=== PATIENT | male | born 1980 | race Caucasian/White ===

== ENCOUNTER 2018-07-18 21:05 | Observation (INO) ==
[2018-07-18] MEDS ORDERED: cefTRIAXone 1,000 MG in Water for inj. (sterile) 20 ML 10 ML IVP ONE (21:24)
[2018-07-18] MEDS ORDERED: Azithromycin 500 MG in D5% in Water 250 ML IVPB ONE (21:24)
--- NOTE | 2018-07-18 21:28 | Emergency Department Note ---
Disposition Clinical Impression: Hypoxia, SIRS due to infectious process without acute organ dysfunction Community acquired pneumonia Qualifiers: Laterality: unspecified laterality Qualified Code(s): J18.9 - Pneumonia, unspecified organism Disposition: Admitted As Inpatient Condition: Fair Time of Disposition: 01:27 SOB HPI - General Chief Complaint: ED Shortness of Breath/Dyspnea Stated Complaint: weakness Time Seen by Provider: 07/18/18 21:17 Source: patient Limitations: no limitations Nursing Notes Reviewed: Yes Vital Signs Reviewed: Yes - History of Present Illness 37-year-old male presents from home for evaluation of fever, productive cough- brown sputum, shortness of breath at rest worsened with exertion, generalized weakness. Onset 4 days ago. Reminiscent of previous pneumonia to him. Patient notes he has a predisposition for upper and lower respiratory infections for reasons unknown to him. Patient thought for a moment earlier this morning that he was getting better however he got notably worse. Also, he and his and 5 children have a single vehicle causing transportation issues. PMH: None Medications: None Habits: Has never smoked. Has never used IV drugs or illicit substances. ROS: Positive: Productive cough, dyspnea, generalized weakness, fever and sweats, decreased appetite, loose stools Negative: Nausea, vomiting, chest pains, palpitations, constipation, abdominal pain, flank pain, unusual back pain, difficulties with urination - Related Data Allergies Allergy/AdvReac Type Severity Reaction Status Date / Time aspirin AdvReac Migraine Verified 12/22/17 09:29 NSAIDS (Non-Steroidal AdvReac Headache Verified 12/22/17 09:29 Anti-Inflamma All systems ED: reviewed and negative except as stated. Review of Systems: As Per HPI Past Medical History - Past Medical History Medical history: Reports: no medical history Surgical history: Reports: orthopedic, other, other Psychiatric history: Reports: ADHD - Social History Smoking Status: Never smoker Smokeless Tobacco Status: No Alcohol use: Reports: none Drug use: Reports: none Physical Exam Vital Signs Reviewed General: Patient is alert, oriented, and appears uncomfortable. Head: atraumatic, normocephalic Eye: normal appearance, PERRL, EOMI, no scleral icterus, no conjunctival injection ENT: mucous membranes moist, normal external ear exam Neck: normal inspection, trachea midline, full ROM Chest: normal inspection, symmetric chest rise Respiratory: Good respiratory effort. Bilateral breath sounds have bibasilar crackles. No wheeze or rhonchi. Cardiovascular: Regular rate and rhythm. No clicks, rubs, gallops, or murmors. Normal heart sounds. Abdomen: Bowel sounds present normoactive. Abdomen is soft, nondistended. Mild epigastric and left upper quadrant tenderness. No guarding or rebound. No organomegaly noted. Musculoskeletal: Spontaneously moving all extremities. Skin: warm, dry, intact. Neuro: GCS 15. No focal neurologic deficits observed. Psych: Patient's affect is appropriate for situation. - General Limitations: no limitations General appearance: alert, in no apparent distress Course Course Narrative: SIRS (+) by fever and tachycardia. Additionally, patient is 91% on room air. EKG dated 07/18/2018 at 21:20 interpreted as sinus tachycardia with a rate of 104. AL 131, QRS 106, QTC 440. Normal axis. Nonspecific ST T changes. Compared to previous EKG dated 04/25/2009 showing no acute ischemic changes in comparison. Chest x-ray concerning for bibasilar pneumonia. Based on history, this will be community-acquired pneumonia. Empiric ceftriaxone and azithromycin given. Serum hematology and serum chemistry are unremarkable. Patient's heart rate improved with 2 L normal saline; no longer tachycardic. Fever improved with Tylenol and ibuprofen. Patient did, however, become tachypneic. His O2 saturation hovered around 90%. Patient was ambulated in the emergency department on room air. He remained 90%. He was tachypneic. I discussed the above the patient. He clinically appears ill despite his laboratory findings. He remains tachypneic oxygenating 90% on room air at rest. Will admit for continued respiratory monitoring and IV antibiotics. I discussed the above with the [facility], Dr. Carpio, who agrees to accept the patient for continued evaluation monitoring of his community-acquired pneumonia. Chest X-Ray 07/18/18 21:24 IMPRESSION: Cardiac leads project over the chest. Mild bibasilar opacity is seen. No evidence of pleural effusion. No pneumothorax. Cardiac and mediastinal silhouettes are within normal limits. RECOMMENDATION: Mild bibasilar atelectasis or pneumonitis. D/ / Joao Lora MD / Joao Lora MD Interpreting Provider: Joao Lora MD Vital Signs Temperature 102.2 F H 07/18/18 21:09 Pulse Rate 111 07/18/18 21:09 Respiratory Rate 18 07/18/18 21:09 Blood Pressure 112/72 07/18/18 21:09 O2 Sat by Pulse Oximetry 91 07/18/18 21:09 Temperature 102.2 F H 07/18/18 21:09 Pulse Rate 85 07/19/18 00:56 Respiratory Rate 22 07/19/18 00:56 Blood Pressure 103/71 07/19/18 00:56 O2 Sat by Pulse Oximetry 92 07/19/18 00:56 Oxygen Delivery Oxygen Delivery Room Air Shortness of Breath/Dyspnea - Lab Data Result diagrams: 07/18/18 21:29 07/18/18 21:29 Lab Results 07/18/18 07/18/18 07/18/18 Range/Units 21:29 21:29 21:29 WBC 5.0 (4.3-11.1) K/mcL RBC 5.08 (4.19-5.50) M/mcL Hgb 15.3 (12.9-16.9) g/dL Hct 44.9 (37.5-50.1) % MCV 88.4 (83.0-100.0) fL MCH 30.1 (28.0-33.3) pg MCHC 34.1 (31.6-35.5) g/dL RDW 12.6 (11.5-14.5) % Plt Count 158 (140-400) K/mcL MPV 10.2 (9.4-12.4) fL Immature Gran % 0.2 (0-4) % Seg Neutrophils % 80.6 % Lymphocytes % 8.6 % Monocytes % 8.4 % Eosinophils % 2.0 % Basophils % 0.2 % Neutrophils # 4.0 (1.6-8.9) K/mcL Lymphocytes # 0.4 L (0.6-4.6) K/mcL Monocytes # 0.4 (0.0-1.3) K/mcL Eosinophils # 0.1 (0.0-0.6) K/mcL Basophils # 0.0 (0.0-0.2) K/mcL Sodium 139 (136-145) mEq/L Potassium 3.5 (3.5-5.1) mEq/L Chloride 104 (98-107) mEq/L Carbon Dioxide 25 (23-29) mEq/L BUN 10 (6-20) mg/dL Creatinine 1.03 (0.70-1.30) mg/dL Est GFR ( Amer) > 60 (> 60) Est GFR (Non-Af Amer) > 60 (> 60) BUN/Creatinine Ratio 10 (6-26) Glucose 106 H (70-105) mg/dL Calculated Osmolality 287 (280-300) Lactic Acid 0.9 (0.5-2.2) mmol/L Calcium 8.8 (8.6-10.3) mg/dL Phosphorus 1.7 L (2.7-4.5) mg/dL Magnesium 2.3 (1.6-2.6) mg/dL Total Bilirubin 0.7 (0.3-1.0) mg/dL Direct Bilirubin 0.1 (0.0-0.2) mg/dL Indirect Bilirubin 0.6 (0.0-1.2) mg/dL AST 20 (13-39) Units/L ALT 21 (7-52) Units/L Alkaline Phosphatase 55 (34-104) Units/L Troponin I < 0.03 (< 0.04) ng/mL Serum Total Protein 6.9 (6.4-8.9) g/dL Albumin 4.3 (3.5-5.7) g/dL Globulin 2.6 (2.4-3.5) g/dL Albumin/Globulin Ratio 1.7 (1.1-2.2) Lipase 31 (11-82) Units/L Urine Color (Yellow) Urine Clarity (Clear) Urine pH (5.0-8.0) pH Units Ur Specific [place] (1.010-1.025) Urine Protein (Neg-Trace) mg/dL Urine Glucose (UA) (Normal) mg/dL Urine Ketones (Negative) mg/dL Urine Blood (Negative) Urine Nitrite (Negative) Urine Bilirubin (Negative) Urine Urobilinogen (Normal) mg/dL Ur Leukocyte Esterase (Negative) Urine Microscopic RBC (0-3) per hpf Urine Microscopic WBC (0-3) per hpf Ur Squamous Epith Cells (None-Few) per lpf Urine Bacteria (None-Few) per hpf Hyaline Casts (None-Few) per lpf Ur Culture Indicated? (NO) 07/18/18 Range/Units 21:46 WBC (4.3-11.1) K/mcL RBC (4.19-5.50) M/mcL Hgb (12.9-16.9) g/dL Hct (37.5-50.1) % MCV (83.0-100.0) fL MCH (28.0-33.3) pg MCHC (31.6-35.5) g/dL RDW (11.5-14.5) % Plt Count (140-400) K/mcL MPV (9.4-12.4) fL Immature Gran % (0-4) % Seg Neutrophils % % Lymphocytes % % Monocytes % % Eosinophils % % Basophils % % Neutrophils # (1.6-8.9) K/mcL Lymphocytes # (0.6-4.6) K/mcL Monocytes # (0.0-1.3) K/mcL Eosinophils # (0.0-0.6) K/mcL Basophils # (0.0-0.2) K/mcL Sodium (136-145) mEq/L Potassium (3.5-5.1) mEq/L Chloride (98-107) mEq/L Carbon Dioxide (23-29) mEq/L BUN (6-20) mg/dL Creatinine (0.70-1.30) mg/dL Est GFR ( Amer) (> 60) Est GFR (Non-Af Amer) (> 60) BUN/Creatinine Ratio (6-26) Glucose (70-105) mg/dL Calculated Osmolality (280-300) Lactic Acid (0.5-2.2) mmol/L Calcium (8.6-10.3) mg/dL Phosphorus (2.7-4.5) mg/dL Magnesium (1.6-2.6) mg/dL Total Bilirubin (0.3-1.0) mg/dL Direct Bilirubin (0.0-0.2) mg/dL Indirect Bilirubin (0.0-1.2) mg/dL AST (13-39) Units/L ALT (7-52) Units/L Alkaline Phosphatase (34-104) Units/L Troponin I (< 0.04) ng/mL Serum Total Protein (6.4-8.9) g/dL Albumin (3.5-5.7) g/dL Globulin (2.4-3.5) g/dL Albumin/Globulin Ratio (1.1-2.2) Lipase (11-82) Units/L Urine Color Yellow (Yellow) Urine Clarity Clear (Clear) Urine pH 5.5 (5.0-8.0) pH Units Ur Specific [place] 1.011 (1.010-1.025) Urine Protein 30 H (Neg-Trace) mg/dL Urine Glucose (UA) Normal (Normal) mg/dL Urine Ketones Trace H (Negative) mg/dL Urine Blood Negative (Negative) Urine Nitrite Negative (Negative) Urine Bilirubin Negative (Negative) Urine Urobilinogen Normal (Normal) mg/dL Ur Leukocyte Esterase Negative (Negative) Urine Microscopic RBC 3-5 H (0-3) per hpf Urine Microscopic WBC 3-5 H (0-3) per hpf Ur Squamous Epith Cells Many H (None-Few) per lpf Urine Bacteria None Seen (None-Few) per hpf Hyaline Casts Few (None-Few) per lpf Ur Culture Indicated? NO (NO) Attestation Statement - Attestation Attestation: Dr. Diego note:/ Attestation: Patient seen in conjunction with emergency medicine resident Dr. Fisher. Please see his charting for complete documentation. Spent [id number] time with the patient and I agree with the patient's treatment and disposition. Patient presents febrile tachycardic and hypoxic. Worse with exertion progressive symptoms for 3 days. Imaging results noted. Blood work is noted. Symptoms include cough and fever for 3 days. History of prior admission for pneumonia as well. Symptoms improved in the ER. Will be admitted due to his tachypnea tachycardia and hypoxia with ambulation.
[2018-07-18] MEDS: 0.9 % Sodium Chloride 1,000 ML IVC SCH ×2 (21:57→23:56)
[2018-07-18 22:01] LABS: Basophils % 0.2 %; Eosinophils # 0.1 K/mcL (0.0-0.6); Hematocrit 44.9 % (37.5-50.1); Hemoglobin 15.3 g/dL (12.9-16.9); Immature Granulocytes % 0.2 % (0-4); Lymphocytes # 0.4 K/mcL (0.6-4.6); Lymphocytes % 8.6 %; Mean Corpuscular HGB Conc 34.1 g/dL (31.6-35.5); Mean Corpuscular Hemoglobin 30.1 pg (28.0-33.3); Mean Corpuscular Volume 88.4 fL (83.0-100.0); Mean Platelet Volume 10.2 fL (9.4-12.4); Monocytes # 0.4 K/mcL (0.0-1.3); Monocytes % 8.4 %; Platelet Count 158 K/mcL (140-400); Red Blood Count 5.08 M/mcL (4.19-5.50); Red Cell Distribution Width 12.6 % (11.5-14.5); Segmented Neutrophils % 80.6 %
[2018-07-18 22:24] LABS: Alanine Aminotransferase 21 Units/L (7-52); Albumin 4.3 g/dL (3.5-5.7); Albumin/Globulin Ratio 1.7 (1.1-2.2); Alkaline Phosphatase 55 Units/L (34-104); Aspartate Amino Transferase 20 Units/L (13-39); BUN/Creatinine Ratio 10 (6-26); Bilirubin,Direct 0.1 mg/dL (0.0-0.2); Bilirubin,Indirect 0.6 mg/dL (0.0-1.2); Bilirubin,Total 0.7 mg/dL (0.3-1.0); Blood Urea Nitrogen 10 mg/dL (6-20); Calcium 8.8 mg/dL (8.6-10.3); Carbon Dioxide 25 mEq/L (23-29); Chloride 104 mEq/L (98-107); Globulin 2.6 g/dL (2.4-3.5); Glucose 106 mg/dL (70-105); Lipase 31 Units/L (11-82); Magnesium 2.3 mg/dL (1.6-2.6); Osmolality,Calculated 287 (280-300); Phosphorous 1.7 mg/dL (2.7-4.5); Potassium 3.5 mEq/L (3.5-5.1); Sodium 139 mEq/L (136-145); Total Protein 6.9 g/dL (6.4-8.9); Troponin I < 0.03 ng/mL (< 0.04); eGFR For Non-African Americans > 60 (> 60)
[2018-07-18 22:33] LABS: Bilirubin,Urine Negative (Negative); Blood,Urine Negative (Negative); Clarity,Urine Clear (Clear); Color,Urine Yellow (Yellow); Glucose,Urine (UA) Normal (Normal); Ketones,Urine Trace mg/dL (Negative); Leukocyte Esterase,Urine Negative (Negative); Nitrite,Urine Negative (Negative); PH,Urine 5.5 pH Units (5.0-8.0); Protein,Urine 30 mg/dL (Neg-Trace); Specific Gravity,Urine 1.011 (1.010-1.025); Urobilinogen,Urine Normal (Normal)
[2018-07-18 22:37] LABS: Bacteria,Urine None Seen per hpf (None-Few); Hyaline Casts,Urine Few per lpf (None-Few); Squamous Epithelial Cell,Urine Many per lpf (None-Few)
[2018-07-18] MEDS ORDERED: Ibuprofen 800 MG TABLET PO ONE (23:39)
[2018-07-19] MEDS ORDERED: Isovue-370 500 ML BOTTLE IVP ONE (01:09)
[2018-07-19] MEDS ORDERED: Ipratropium/Albuterol Neb 3 ML IH PRN (01:13)
[2018-07-19] MEDS ORDERED: Naloxone 0.4 MG/ML INJ IVP PRN (01:14)
[2018-07-19] MEDS ORDERED: Acetaminophen 325 MG TABLET PO PRN (01:14)
[2018-07-19] MEDS ORDERED: traMADol 50 MG TABLET PO PRN (01:14)
[2018-07-19] MEDS ORDERED: 0.9 % Sodium Chloride 1,000 ML IVC SCH (01:15)
--- NOTE | 2018-07-19 01:25 | Internal Med History&Physical ---
Date of Encounter: 07/19/18 Time of Encounter: 01:23 Internal Medicine - H&P: HPI Chief complaint: sob Admitted From: Home Plans for Post Hospital Care: Home History of present illness: Abhijit Montano is a 37-year-old man who denies any past medical history but on review of old records is seen to have had an admission for pneumonia in 2016 resenting with the complaint of 3 days of fever, cough produc tive of brownish sputum and shortness of breath that is worsened with exertion and accompanied by generalized weakness and fatigue. In the ER he was seen tachycardic and saturating 91% on room air upon arrival. X-ray was suggestive of bibasilar opacities. He was ill-appearing and is admitted for observation. He denies a smoking history. Vitals: Reviewed General: Obese white male lying in bed in notable discomfort, ill-appearing. Skin: Warm and diaphoretic. HEENT: Moist mucous membranes. No conjunctivae pallor. Neck: No lymphadenopathy. No JVD. No carotid bruits. No palpable thyroid. Chest: Normal thoracic expansion. Fine crackles auscultated in both lung bases. No wheezes or rhonchi. Heart: Normal S1 & S2; rhythmic. No rubs or murmurs. Abdomen: Non-distended, soft and non-tender to palpation. No peritoneal reaction. Extremities: No clubbing, cyanosis or edema. No calf tenderness. Normal distal pulses. Neurological: Awake, alert and oriented to person, place and time. No focal deficits. Psych: Affect appropriate. Assessment/Plan 1. Sepsis secondary to community-acquired pneumonia: As evidenced by fever and tachycardia with the physical exam, clinical symptoms and x-ray suggestive of pneumonia. Given the poor evaluation on x-ray and will prefer to get a CT scan for further assessment. Keep on ceftriaxone and azithromycin for now. Obtain peripheral blood cultures and send urine antigens for serology testing. Fluid resuscitation. Antipyretics as needed and nebulizer therapy for shortness of breath if required. 2. Obesity: Counseled and educated on therapeutic lifestyle changes for weight loss as it will be of benefit in controlling comorbidities. Clinical Education Manager evaluation advised. Past Med Surg Social Fam HX - Past Medical History Medical history: no medical history Additional medical history: sleep apnea Psychiatric history: ADHD - Past Surgical History Surgical History: orthopedic, other, other Additional surgical history: right ankle - Social History Smoking Status: Never smoker Smokeless Tobacco Status: No Alcohol use: none Drug use: none - Family History Father Adopted: No Family Member Ethnicity: Unknown Living Status: Still Living Son Hx Family Respiratory Disorders: Yes (Asthma) Internal Medicine - H&P: Meds Albuterol Sulfate [Albuterol Inhaler] 1 - 2 puff IH Q6HR PRN #1 hfa.[email or web address] 12/22/17 [Rx] Azithromycin [Zithromax] 0 mg PO Q24H #6 tablet 12/22/17 [Rx] Benzonatate [Tessalon] 200 mg PO TID #20 capsule 12/22/17 [Rx] Acetaminophen [Tylenol] 1,000 mg PO Q6HR #24 tablet 04/28/18 [Rx] Ondansetron ODT [Zofran ODT] 4 mg SL ONCE #10 tab.rapdis 04/28/18 [Rx] Allergy/AdvReac Type Severity Reaction Status Date / Time aspirin AdvReac Migraine Verified 12/22/17 09:29 NSAIDS (Non-Steroidal AdvReac Headache Verified 12/22/17 09:29 Anti-Inflamma All Systems PM: A 10-system review of systems was performed and is negative for pertinent findings except as documented above in the HPI. - Constitutional Vitals: Temp Pulse Resp BP Pulse Ox 102.2 F H 85 22 103/71 92 07/18/18 21:09 07/19/18 00:56 07/19/18 00:56 07/19/18 00:56 07/19/18 00:56 Exam: . Internal Med - H&P Results - Labs CBC & Chem 7: 07/18/18 21:29 07/18/18 21:29 Labs: Short CBC 07/18/18 Range/Units 21:29 WBC 5.0 (4.3-11.1) K/mcL Hgb 15.3 (12.9-16.9) g/dL Hct 44.9 (37.5-50.1) % Plt Count 158 (140-400) K/mcL Neutrophils # 4.0 (1.6-8.9) K/mcL BMP 07/18/18 21:29 Sodium 139 Potassium 3.5 Chloride 104 Carbon Dioxide 25 BUN 10 Creatinine 1.03 Glucose 106 H Calcium 8.8 Cardiac Enzymes 07/18/18 Range/Units 21:29 Troponin I < 0.03 (< 0.04) ng/mL Liver Function 07/18/18 Range/Units 21:29 Total Bilirubin 0.7 (0.3-1.0) mg/dL Direct Bilirubin 0.1 (0.0-0.2) mg/dL AST 20 (13-39) Units/L ALT 21 (7-52) Units/L Alkaline Phosphatase 55 (34-104) Units/L Albumin 4.3 (3.5-5.7) g/dL Urine 07/18/18 Range/Units 21:46 Urine Color Yellow (Yellow) Urine Clarity Clear (Clear) Urine pH 5.5 (5.0-8.0) pH Units Ur Specific [place] 1.011 (1.010-1.025) Urine Protein 30 H (Neg-Trace) mg/dL Urine Glucose (UA) Normal (Normal) mg/dL - Impressions ITS Impressions Chest X-Ray 07/18/18 21:24 IMPRESSION: Cardiac leads project over the chest. Mild bibasilar opacity is seen. No evidence of pleural effusion. No pneumothorax. Cardiac and mediastinal silhouettes are within normal limits. RECOMMENDATION: Mild bibasilar atelectasis or pneumonitis. D/ / Joao Lora MD / Joao Lora MD Interpreting Provider: Joao Lora MD - Time Spent With Patient Total time spent is greater than 50% in coordination of care (as documented) at patient's floor/unit and/or counseling patient: Greater than 35 minutes
[2018-07-19] MEDS ORDERED: *HR* Heparin 5,000 UNIT/ML VIAL SQ SCH (06:00)
[2018-07-19] MEDS ORDERED: cefTRIAXone 1,000 MG in Water for inj. (sterile) 20 ML 10 ML IVPB SCH (09:00)
[2018-07-19 10:35] VITALS: BP 117/71
--- NOTE | 2018-07-19 11:56 | Discharge Summary ---
- NOTES TO OUTPATIENT PROVIDER Notes to Outpatient Provider: f/u with PCP in one week. Orders not resulted at time of discharge: Pending orders 07/18/18 21:33 Culture,Blood [BC] Stat 07/19/18 12:15 CT chest w con [CT] Routine Date of Encounter: 07/19/18 Time of Encounter: 11:52 - Discharge Diagnosis (1) Community acquired pneumonia Priority: Primary Status: Acute Assessment and Plan: mostly bacterial PNA Qualifiers: Laterality: unspecified laterality Qualified Code(s): J18.9 - Pneumonia, unspecified organism (2) Asthma exacerbation Priority: Primary Status: Acute Qualifiers: Asthma severity: mild Asthma persistence: intermittent Qualified Code(s): J45.21 - Mild intermittent asthma with (acute) exacerbation Hospital course: Mr. Montano is a 37 year old male with a known past medical history of asthma on rescue inhaler pt presented to ER complaining about patient has been having progressively worsening shortness of breath as well as cough with brownish expectoration and fever from last 3 days. In the ER patient was tachycardic and saturating 91% on room air. His CXR showed b/l opacities / consolidations. Pt was admitted in the hospital and started him on IV hydration as well as empirical antibiotic. He remained afebrile. His white count within normal limits. His Influenza A / B negative. His strep PNA and Legionella are negative. Patient stated he is feeling better today. He is breathing comfortably on room air. He would like to go home today. I recommended him to stay one more day for IV abx , however he still wanted to go home today. So will d.c him home with PO abx Levaquin and systemic steroids Prednisone. - Time Spent with Patient Total time spent providing and/or coordinating discharge services: - Discharge Medications Prescriptions: New Albuterol Sulfate [Albuterol Inhaler] 2 puff IH Q6HR PRN #1 hfa.aer.ad PRN Reason: Shortness Of Breath PredniSONE [Deltasone] 40 mg PO DAILY #8 tablet Levofloxacin [Levaquin] 750 mg PO DAILY #4 tablet Home Medications: Albuterol Sulfate [Albuterol Inhaler] 2 puff IH Q6HR PRN #1 hfa.aer.ad 07/19/18 [Rx] Levofloxacin [Levaquin] 750 mg PO DAILY #4 tablet 07/19/18 [Rx] PredniSONE [Deltasone] 40 mg PO DAILY #8 tablet 07/19/18 [Rx] Allergies/Adverse Reactions: Allergy/AdvReac Type Severity Reaction Status Date / Time aspirin AdvReac Migraine Verified 12/22/17 09:29 NSAIDS (Non-Steroidal AdvReac Headache Verified 12/22/17 09:29 Anti-Inflamma Date of admission: 07/19/18 02:22 Primary care physician: Reji Weir MD Consults: 07/19/18 09:06 Consult to Nurse Navigator [CONS] Routine Comment: PNEUMONIA - Constitutional Vitals: Temp Pulse Resp BP Pulse Ox 98.5 F 81 16 117/71 94 07/19/18 10:31 07/19/18 10:31 07/19/18 10:31 07/19/18 10:31 07/19/18 10:31 General appearance: Present: A&O X 3, no acute distress, answers questions appropriately Exam: Gen: Alert, awake, Oriented to time,place and person Chest: Diminished breath sounds B/L, moderate wheezing, No crackles, No rales Heart: S1S2+ RRR No murmurs Abd: Soft, NT, BS +, No organomegaly Ext: No edema, pulses are palpable, No calf tenderness Neuro : Benign findings Skin: No rash. - Patient Status Disposition: Home, Self-Care Condition: Good Overall status at discharge: patient is back to baseline - Discharge Instructions Follow Up With: Reji Weir MD [Primary Care Provider] - 07/27/18 10:00 am - Diet and Activity Activity: increase activity as tolerated Diet: low salt diet
--- NOTE | 2018-07-19 13:09 | Electrocardiograph Report ---
[address] [address] Test Date: 2018-07-18 Pat Name: Abhijit Montano Department: [id number] Room: 3B41 Gender: M Recreational Leader: : 1980 Requested By: Adrián Fisher Order Number: [id number] Reading MD: Yumiko De Luna Measurements Intervals [place] Rate: 104 P: 58 NV: 131 QRS: -7 QRSD: 106 T: 29 QT: 334 QTc: 440 Interpretive Statements Sinus tachycardia RSR' in V1 or V2, right VCD or RVH Electronically Signed On 07-19-2018 13:07:53 EDT by Yumiko De Luna
[2018-07-19] MEDS ORDERED: Azithromycin 500 MG in D5% in Water 250 ML IVPB SCH (21:00)
== END 2018-07-19 14:18 | disposition home or self-care (01) ==
LOC: 3BNU 21:05 → EMEROOARM 21:05 → SUATTDRO 07-19 02:22 → 3BNU 07-19 02:57
PROVIDERS: ADMIT Internal Medicine; ATTEND Family Medicine